=== PATIENT | female | born 1970 | race Caucasian/White ===

== ENCOUNTER 2019-12-10 14:45 | Emergency (ER) | payer OTHER ==
[2019-12-10 15:03] VITALS: BP 141/82
--- NOTE | 2019-12-10 15:11 | UC ---
Abdominal Pain Female HPI - HPI Summary HPI Summary: Pt presents to for evaluation of a suspected UTI. Pt is wheelchair dependent and self caths. Pt states over the last 24 hours feels feverish (has not measured) and notices need to urinate has increased. Pt states has had increased incontinence from her baseline. Patient states her urine has been little bit dark and a mild odor. States is not cloudy or bloody. Patient has any abdominal pain. No nausea or vomiting. No back pain. No other signs of infection including no sore throat and ear pain and sinus congestion cough shortness of breath. Patient denies any rash. Patient states she is on an immunosuppressant agent for a mass. Patient called her urologist today who wanted her to get checked. Patient states she used to be on Levaquin chronically to prevent UTIs. previous to lj Ruval[place]aba triage was reviewed this visit. Hat she was on Macrobid. Patient states she came off of that September and has never been diagnosed with UTI since. Patients medications as entered in EMR by v belt finisher reviewed this visit - History of Current Complaint Chief Complaint: UCGU Stated Complaint: URINARY Time Seen by Provider: 12/10/19 14:51 Hx Obtained From: Patient, Medical Records - no urine cultures in [facility] Hx Last Menstrual Period: 01/12/15 Pain Intensity: 4 Radiates: No Allergies/Adverse Reactions: Allergies Allergy/AdvReac Type Severity Reaction Status Date / Time IV contrast Allergy Hives Uncoded 12/10/19 15:03 Home Medications: Home Medications Fingolimod (NF) [Gilenya] 0.5 mg PO DAILY 12/10/19 [History Confirmed 12/10/19] Warfarin TAB(*) [Coumadin TAB(*)] 8 mg PO DAILY@1700 12/10/19 [History Confirmed 12/10/19] PMH/Surg Hx/FS Hx/Imm Hx Previously Healthy: Yes - MS, immunosuppressant - Surgical History Surgical History: Yes Surgery Procedure, Year, and Place: Spinal fusion, laparoscopy - Family History Known Family History: Positive: Non-Contributory - Social History Occupation: Employed Full-time Lives: With Family Alcohol Use: Rare Substance Use Type: None Smoking Status (MU): Never Smoked Tobacco Review of Systems All Other Systems Reviewed And Are Negative: Yes Constitutional: Positive: Fever - tactile Genitourinary: Positive: Frequency, Other - dark , slight odor Physical Exam - Summary Physical Exam Summary: Vital Signs Reviewed: Yes A+Ox3, no distress Eyes: Conjunctiva Clear, VIRAL. EOM intact and full ENT: Hearing grossly normal TM x 2 clear, turbinates wnl, mmoist, uvula midline , no exudate, no erythema Neck: Positive: Supple Respiratory: Positive: No respiratory distress, No accessory muscle use + CTA throughout no w/r Cardiovascular: RRR nl s1, s2 no m/r CBT <2 sec abd soft + BS nt/nd no guarding, no distension, no CVA Musculoskeletal Exam: COCHRAN x 4 without difficulty Strength Intact, ROM Intact Neurological: Positive: Alert, + sensation throughout Psychological: Positive: Normal Response To examiner Skin: Positive: no rash, no ecchymosis Triage Information Reviewed: Yes Vital Signs: Initial Vital Signs Temp 100.2 F 12/10/19 15:00 Pulse 98 12/10/19 15:00 Resp 16 12/10/19 15:00 BP 141/82 12/10/19 15:00 Pulse Ox 99 12/10/19 15:00 Abd Pain Female Course/Dx - Course Course Of Treatment: Patient self Presents Concern for Recurrent UTI. Patient States for the Last Her for Her She's [place] Febrile S and Urinating More Is Some Odor. No Blood. No Back Pain. No Abdominal Pain. Patient Has Decreased Sensation but Is Not Insensate. Patient States She Has Not Had a UTI Many Years. Patient Was Peripherally on Prophylaxis but Not Currently. On Exam Vital Signs Showed a Mildly Elevated Temperature 100.2. Patient's Heart Rate Is 98 but She States She Typically Runs in the 90s. Patient Is Very Well-Appearing in No Distress. Patient Certainly Is Not Toxic with No Back Pain or Abdominal Pain. Patient's Urine Shows 1+ Leuk Esterase. We'll Send for Culture. A Long Discussion with Patient regarding possible etiologies for Low-Grade Fever. Given Her Presentation We'll Start Her on Augmentin. There Are No Previous Cultures of Her System to Compare to for sensitivities. We'll Culture Urine. Patient Given Very Strict Return Precautions and to present to the emergency Department If She Has Persistent Fevers, Belly Pain, or Any Other Concerns. Patient's at Bedside. Both Comfortable Agreement with Plan. - Differential Dx/Diagnosis Provider Diagnosis: Urinary frequency Discharge ED - Sign-Out/Discharge Documenting (check all that apply): Patient Departure All imaging exams completed and their final reports reviewed: No Studies - Discharge Plan Condition: Stable Disposition: HOME Prescriptions: Amoxicillin/Clavulanate TAB* [Augmentin TAB 875*] 875 mg PO BID #20 tab Patient Education Materials: Urinary Tract Infection in Women (ED) Forms: *Work Release Referrals: Sen Porras DMD, V. [Primary Care Provider] - Additional Instructions: - stay well hydrated - drink plenty of non-alcoholic, non caffinated beverages - your urine will be further tested - if you require any changes to your treatment, we will contact you - this usually take 2 days - Contact your primary doctor to arrange a follow-up appointment next week. Contact your doctor or return with questions or concerns - Take your antibiotics exactly as prescribed until gone - Okay to alternate ibuprofen (Advil, Motrin) and Tylenol every 3 hours for pain. Take with food If you develop uncontrolled fever, vomiting, abdominal pain or ANY other concerns it is recommended you go to the emergency department for further evaluation and treatment - Call your doctor or return with questions or concerns - Billing Disposition and Condition Condition: STABLE Disposition: Home
== END 2019-12-10 15:57 | disposition home or self-care (01) ==
LOC: UCCORT 14:45
DX: R35.0 Frequency of micturition (principal); R50.9 Fever, unspecified; Z79.01 Long term (current) use of anticoagulants; Z91.041 Radiographic dye allergy status
CPT/HCPCS: 81003; 87077; 87086; 87186; 99212; G0463